=== PATIENT | female | born 1935 | race African-American/Black ===

== ENCOUNTER 2020-05-23 01:53 | Emergency (ER) | payer OTHER ==
[~2020-05-23] VITALS: Ht 172.7 cm; Wt 68.0 kg
[2020-05-23 03:15] LABS: PLATELET COUNT 249 x10^3mcL (130-400)
[2020-05-23 03:20] LABS: RED CELL DISTRIBUTION WIDTH 17.1 % (11.5-14.5)
[2020-05-23 03:21] LABS: CALCIUM 10.3 mg/dL (8.5-10.1); CARBON DIOXIDE 26.3 mmol/L (21-32); CHLORIDE SERUM 99 mmol/L (98-107); CREATININE SERUM 1.7 mg/dL (0.6-1.0); GLUCOSE SERUM 141 mg/dL (74-106); POTASSIUM SERUM 3.7 mmol/L (3.5-5.1); SODIUM SERUM 143 mmol/L (136-145)
[2020-05-23 03:40] LABS: ALKALINE PHOSPHATASE 96 U/L (46-116); ALT/SGPT 11 U/L (14-59); AST/SGOT 33 U/L (15-37); BILIRUBIN TOTAL 2.25 mg/dL (0.20-1.00); TOTAL PROTEIN, SERUM 7.9 g/dL (6.4-8.2)
[2020-05-23 03:50] LABS: BAND NEUTROPHIL 11 % (0-10); BASOPHIL 0 % (0-2); MONOCYTE 5 % (0-7); SEGMENTED NEUTROPHILS 80 % (37-75)
[2020-05-23 03:51] LABS: ALBUMIN 2.5 g/dL (3.4-5.0); CHOLESTEROL 222 mg/dL (<200)
[2020-05-23 03:52] LABS: PLATELET MORPHOLOGY LARGE PLATELET SEEN; burr cell (echinocyte) 1+; rbc morphology (normal/abnorm) ABNORMAL (NORMAL); tear drop cell (dacryocyte) 1+
[2020-05-23 05:06] LABS: UA SPECIFIC GRAVITY 1.025 (1.005-1.035); microscopic required? YES; urine erythrocyte TRACE (NEGATIVE)
[2020-05-23 12:22] VITALS: BP 149/80
== END 2020-05-23 12:22 | disposition short-term general hospital (02) ==
LOC: ED 01:53
PROVIDERS: Emergency Medicine
DX: N39.0 Urinary tract infection, site not specified (principal); R41.82 Altered mental status, unspecified; R79.89 Other specified abnormal findings of blood chemistry; Z20.828 Contact with and (suspected) exposure to other viral communicable diseases
CPT/HCPCS: G0480; J0694; J7030